=== PATIENT | male | born 1955 | race Caucasian/White ===

== ENCOUNTER → 2019-08-07 | Outpatient (CLI) | payer MEDICARE, OTHER ==
[~2019-08-07] MED LIST: ASPIR 8181 MG PO; BRILINTA90 MG PO; COUMADIN 5 MG TA5 M1 PO; COUMADIN7.5 MG PO; IMDUR 30 MG TAB30 M1 PO; LIPITOR80 MG PO; LISINOPRIL20 MG PO; LYRICA 75 MG CA75 MG PO; NITROGLYCERIN0.4 MG SUBLING; NORVASC10 MG PO; TOPROL XL100 MG PO; TRAMADOL 50 MG50 MG PO; TYLENOL325 MG PO
--- NOTE | 2019-08-07 15:58 | CARDNUC ---
[place] [address] CARDIAC NUCLEAR IMAGING REPORT Name: CLAUDIA DOW Room: [facility]#: [id number] Admission: 08/07/19 Attend Phys: Ambrose Wang Discharge: Date of : 59 Date of Service: 08/07/19 1558 Report #: [id number] THIS REPORT FOR: //name// APPROVED REPORT Imaging Protocol: Rest Tc-99m/Stress Tc-99m 1 day Study performed: 08/07/2019 12:45:00 Indication: CAD s/p PCI Patient Location: Out-Patient Stress Tech: Jill Marquez Stress Nurse: Afshan Vila RN NM Tech:JÚNIOR Castillo Ht: 6 ft 0 in Wt: 238 lbs BSA: 2.29 m2 BMI: 32.27 Medical History Medical History: Angina, CAD s/p stent, Cardiomyopathy, Current Smoker, HTN, Hyperlipidemia, PAD, PVD, AKA, HX DVT. Medications: Amlodipine, Atorvastatin, HCTZ, Lisinopril, Metoprolol, NTG, Warfarin. Allergies: No known drug allergies Cardiac Risk Factors: Age, Current Smoker, FHX of CAD, HTN, Hyperlipidemia, PVD,PAD, Cardiomyopathy. Previous Cardiac Procedures: PCI Pretest Chest Pain Characteristics: No chest pain Exercise History: Indeterminate Physical Disabilities: AKA Meds Held (24 hrs): Metoprolol, NTG. Resting Data Rest SPECT myocardial perfusion imaging was performed in supine position 30 minutes following the intravenous injection of 11.1 mCi of Tc-99m Sestamibi. Time of rest injection: 1300 Date: 08/07/2019 The images were gated to evaluate regional wall motion and calculate left ventricular ejection fraction. Administration Route: IV Administration Site: Right AC Pharmacologic Stress Pharmacologic stress test was performed by injecting Regadenoson 0.4 mg IV push over 10-15 seconds immediately followed by the intravenous injection of 34.9 mCi of Tc-99m [place] [address] CARDIAC NUCLEAR IMAGING REPORT Name: CLAUDIA DOW Room: [facility]#: [id number] Admission: 08/07/19 Attend Phys: Ambrose Wang Discharge: Date of : 59 Date of Service: 08/07/19 1558 Report #: [id number] Time of stress injection: 1425 Date: 08/07/2019 Administration Route: IV Administration Site: Right AC Gated Stress SPECT was performed 40 minutes after stress injection. The images were gated to evaluate regional wall motion and calculate left ventricular ejection fraction. Stress only was performed in the Supine position. Stress Test Details Stress Test: Pharmacologic stress testing performed using 0.4 mg of regadenoson per 5 mL given IV over 10 seconds. Reason for pharmacologic stress test: AKA. HR Max Heart Rate (APMHR): 159 bpm Resting HR: 84 bpm Target HR (85% APMHR): 135 bpm Max HR Achieved: 97 bpm % of APMHR: 61 Recovery HR: 86 bpm BP Resting BP: 146/94 mmHg Max BP: 171/82 mmHg Recovery BP: 151/93 mmHg ECG Resting ECG: Sinus Rhythm Stress ECG: Sinus Rhythm ST Change: None Arrhythmia: None Recovery ECG: Sinus Rhythm Recovery ST Change: None Recovery Arrhythmia: None Clinical Reason for Termination: Completed protocol Stress Symptoms: Dyspnea Exercise duration: 00 min 00 sec Exercise capacity: 1.00 METs The patient tolerated Lexiscan infusion without significant cardiac symptoms. Nurse Comments A 63 year old male presented with AKA for a sitting Lexiscan r/t s/p PCI. Test well tolerated. Recovery unremarkable. Patient was escorted by staff to Nuclear Medicine for imaging. Patient was stable and stated he felt [place] [address] CARDIAC NUCLEAR IMAGING REPORT Name: CLAUDIA DOW Room: [facility]#: [id number] Admission: 08/07/19 Attend Phys: Ambrose Wang Discharge: Date of : 59 Date of Service: 08/07/19 1558 Report #: [id number] Stress ECG Conclusion The baseline 12-lead EKG shows sinus rhythm without significant ST segment or T wave abnormality. EKGs during and post Lexiscan infusion show sinus rhythm with no significant ST segment or T wave changes when compared to baseline. There were no stress-induced arrhythmias. Study Quality Study: Good Artifact: No artifact Study Data At rest, the left ventricular ejection fraction was 45%.. Post stress, the left ventricular ejection was 45%.. TID = 1.04. Perfusion Perfusion images show a large in size severe in intensity fixed defect involving the inferior wall from base to apex. No other significant fixed or reversible defects were identified. Wall Motion Gated studies show akinesis of the basal to distal inferior wall. Global LV systolic function appears moderately decreased. Nuclear Conclusion ECG Findings: negative for ischemia Clinical Findings: negative for ischemia Nuclear Findings: negative for ischemia Exercise Capacity: not assessed Left Ventricular Function: abnormal Myocardial perfusion imaging evidence of prior extensive inferior wall infarct. There was no evidence of stress-induced ischemia. Global LV systolic function appears moderately decreased. Wall motion abnormalities identified as noted above. Findings consistent with an ischemic cardiomyopathy. This is not a high risk study. <Conclusion> The baseline 12-lead EKG shows sinus rhythm without significant ST segment or T wave abnormality. EKGs during and [place] [address] CARDIAC NUCLEAR IMAGING REPORT Name: CLAUDIA DOW Room: [facility]#: [id number] Admission: 08/07/19 Attend Phys: Ambrose Wang Discharge: Date of : 59 Date of Service: 08/07/19 1558 Report #: [id number] show sinus rhythm with no significant ST segment or T wave changes when compared to baseline. There were no stress-induced arrhythmias. <ELECTRONICALLY SIGNED> By: Estrada Villalba MD, FACC 08/07/19 1558 1558 1558 Estrada Villalba MD, FACC /INF
== END ==
LOC: M.NUC 04-13 08:58
DX: I25.10 Atherosclerotic heart disease of native coronary artery without angina pectoris (principal); I25.5 Ischemic cardiomyopathy; E78.5 Hyperlipidemia, unspecified; I73.9 Peripheral vascular disease, unspecified; F17.200 Nicotine dependence, unspecified, uncomplicated; Z95.5 Presence of coronary angioplasty implant and graft; Z79.899 Other long term (current) drug therapy